=== PATIENT | male | born 1940 | race Caucasian/White ===

== ENCOUNTER 2019-07-04 03:30 | Emergency (ER) | payer OTHER ==
[~2019-07-04] VITALS: Ht 175.3 cm; Wt 70.3 kg
--- NOTE | 2019-07-04 03:33 | ED General ---
General Stated Complaint: CHEST DISCOMFORT History of Present Illness Date Seen by Provider: Jul 04, 2019 Time Seen by Provider: 03:50 Initial Comments Patient is a 79-year-old male with past medical history significant for coronary artery disease and who is status post cardiac intervention 4 days earlier. He was discharged from [facility] in [place], [place] two days earlier after receiving cardiac catheterization with intervention. He had 2 stents placed. This evening, he was at home when he began to have some chest heaviness and palpitations around 5 PM. He had intermittent episodes of these symptoms and right arm pain and palpitations which occurred throughout the evening. Pain radiated to the left side of his neck. He went to bed around 7 PM and continued to have symptoms well into the night which caused him concern so he called EMS. Patient was given aspirin in route to the emergency room. On arrival to the ER, the patient denies active chest pain. He also perceives that he is having palpitations despite that his monitor reveals a sinus rhythm and no arrhythmias. No fever or chills. No cough. No nausea or vomiting. No diaphoresis . Allergies and Home Medications Allergies Coded Allergies: No Known Allergies (Verified Allergy, Unknown, 07/04/19) Patient Home Medication List Home Medication List Reviewed: Yes Review of Systems Review of Systems Constitutional: no symptoms reported EENTM: no symptoms reported Respiratory: no symptoms reported Cardiovascular: chest pain Genitourinary: no symptoms reported Musculoskeletal: no symptoms reported Skin: no symptoms reported All Other Systems Reviewed Negative Unless Noted: Yes Physical Exam Vital Signs Vital Signs - First Documented 07/04/19 03:36 Temp 36.8 Pulse 67 Resp 18 B/P (MAP) 145/63 (90) O2 Delivery Room Air Capillary Refill : Height, Weight, BMI Height: '" Weight: lbs. oz. kg; BMI Method: General Appearance: No Apparent Distress, WD/WN HEENT: PERRL/EOMI, TMs Normal Respiratory: Lungs Clear, Normal Breath Sounds Cardiovascular: Regular Rate, Rhythm, No Edema, No JVD, No Murmur Gastrointestinal: Normal Bowel Sounds Extremity: Normal Capillary Refill, Other (no swelling or pain about the right radial artery where catheterization was performed. expected ecchymosis is present. 2+ pulses) Neurologic/Psychiatric: Alert, Oriented x3, No Motor/Sensory Deficits Skin: Normal Color, Warm/Dry Progress/Results/Core Measures Suspected Sepsis SIRS Temperature: Pulse: Respiratory Rate: Laboratory Tests 07/04/19 03:40: White Blood Count 7.7 Blood Pressure / Mean: Laboratory Tests 07/04/19 03:40: Creatinine 0.97, Platelet Count 167 07/04/19 04:57: Creatinine 0.96, INR Comment 1.0 Results/Orders Lab Results Laboratory Tests Test 07/04/19 03:40 07/04/19 04:57 Range/Units White Blood Count 7.7 4.3-11.0 10^3/uL Red Blood Count 3.34 L 4.35-5.85 10^6/uL Hemoglobin 10.1 L 13.3-17.7 G/DL Hematocrit 32 L 40-54 % Mean Corpuscular Volume 94 80-99 FL Mean Corpuscular Hemoglobin 30 25-34 PG Mean Corpuscular Hemoglobin Concent 32 32-36 G/DL Red Cell Distribution Width 14.0 10.0-14.5 % Platelet Count 167 130-400 10^3/uL Mean Platelet Volume 11.0 H 7.4-10.4 FL Neutrophils (%) (Auto) 69 42-75 % Lymphocytes (%) (Auto) 13 12-44 % Monocytes (%) (Auto) 12 0-12 % Eosinophils (%) (Auto) 6 0-10 % Basophils (%) (Auto) 1 0-10 % Neutrophils # (Auto) 5.2 1.8-7.8 X 10^3 Lymphocytes # (Auto) 1.0 1.0-4.0 X 10^3 Monocytes # (Auto) 0.9 0.0-1.0 X 10^3 Eosinophils # (Auto) 0.4 H 0.0-0.3 10^3/uL Basophils # (Auto) 0.1 0.0-0.1 10^3/uL Sodium Level 140 141 135-145 MMOL/L Potassium Level 6.2 H 4.2 3.6-5.0 MMOL/L Chloride Level 106 105 98-107 MMOL/L Carbon Dioxide Level 22 23 21-32 MMOL/L Anion Gap 12 13 5-14 MMOL/L Blood Urea Nitrogen 20 H 20 H 7-18 MG/DL Creatinine 0.97 0.96 0.60-1.30 MG/DL Estimat Glomerular Filtration Rate > 60 > 60 BUN/Creatinine Ratio 21 21 Glucose Level 109 H 96 70-105 MG/DL Calcium Level 8.1 L 8.5 8.5-10.1 MG/DL Troponin I 4.66 *H <0.30 NG/ML Pro-B-Type Natriuretic Peptide 1725.0 H <75.0 PG/ML Prothrombin Time 13.0 12.2-14.7 SEC INR Comment 1.0 0.8-1.4 Activated Partial Thromboplast Time 26 24-35 SEC My Orders Orders - DAINA NOLEN DO Ed Iv/Invasive Line Start (07/04/19 03:37) Cbc With Automated Diff (07/04/19 03:37) Basic Metabolic Panel (07/04/19 03:37) Probnp Fs (07/04/19 03:37) Troponin I Fs (07/04/19 03:37) Ekg Tracing (07/04/19 03:37) Chest 1 View Ap/Pa Only (07/04/19 03:37) Basic Metabolic Panel (07/04/19 04:40) Protime With Inr (07/04/19 04:54) Partial Thromboplastin Time (07/04/19 04:54) Vital Signs/I&O 07/04/19 07/04/19 03:36 03:49 Temp 36.8 Pulse 67 Resp 18 B/P (MAP) 145/63 (90) O2 Delivery Room Air Room Air Capillary Refill : Progress Note : Progress Note Patient is evaluated immediately on arrival to the ER. He was given aspirin in route. There are no records available for review in our electronic medical record system on this patient. Initial EKG is reassuring. He does have ST depressions in V2 through V4 but no reciprocal changes to suggest posterior infarct. Again, no EKG is available for comparison. Standard ACS work-up is ordered. On arrival to the ER, patient is not having chest pain but does continue to perceive palpitations. 04:50: Troponin is noted to be elevated along with potassium of 6.2. Order is placed to recheck BMP. Lab results do not reveal hyperglycemia, elevated creatinine, anion gap, or any obvious etiology for hyperkalemia. No acute EKG changes suspicious for this lab finding and no treatment is initiated at this time, we will await repeat labs. Regarding the elevated troponin, I spoke to the patient about possible need for admission at least for observation and the patient chooses [facility] as he was just discharged from there and his cardiologists are there. I did speak to Dr. Sandor Johns at the transfer center of [facility]. He confirmed that the patient's troponin had been over 80 at sometime during the last week. Because of this, no heparin is started on the patient as his troponin is trending down. He is not currently having chest pain. Current EKG does not suggest new ischemia. Nonetheless, this patient wouldn't meet admission criteria given his recent intervention and episode of chest pain and HEART score. 06:00: Turnover of care to Dr. Rivera. Transfer to [facility] pending. No current chest pain. ECG Initial ECG Impression Date: Jul 04, 2019 Initial ECG Impression Time: 03:45 Initial ECG Rate: 78 Initial ECG Rhythm: Normal Sinus Initial ECG Comparisson: No Previous ECG Available Departure Impression Primary Impression: Chest pain Disposition: XFER SHT-TRM HOSP Condition: Stable Transfer Transfer Reason: Patient preference Time Spoke to Accepting Phy: 04:50 Transfer Facility: [facility] Method of Transfer: EMS DAINA NOLEN DO Jul 04, 2019 03:33
[2019-07-04 03:50] LABS: BASOPHILS # (AUTO) 0.1 10^3/uL (0.0-0.1); BASOPHILS % (AUTO) 1 % (0-10); EOSINOPHILS # (AUTO) 0.4 10^3/uL (0.0-0.3); EOSINOPHILS % (AUTO) 6 % (0-10); HEMATOCRIT 32 % (40-54); HEMOGLOBIN 10.1 G/DL (13.3-17.7); LYMPHOCYTES % (AUTO) 13 % (12-44); MEAN CORPUSCULAR HEMOGLOBIN 30 PG (25-34); MEAN CORPUSCULAR HGB CONC 32 G/DL (32-36); MEAN CORPUSCULAR VOLUME 94 FL (80-99); MONOCYTES # (AUTO) 0.9 X 10^3 (0.0-1.0); MONOCYTES % (AUTO) 12 % (0-12); NEUTROPHILS # (AUTO) 5.2 X 10^3 (1.8-7.8); NEUTROPHILS % (AUTO) 69 % (42-75); PLATELET COUNT 167 10^3/uL (130-400); WHITE BLOOD COUNT 7.7 10^3/uL (4.3-11.0)
[2019-07-04 04:05] LABS: BUN/CREATININE RATIO 21; CALCIUM 8.1 MG/DL (8.5-10.1); CARBON DIOXIDE 22 MMOL/L (21-32); CHLORIDE 106 MMOL/L (98-107); CREATININE SERUM 0.97 MG/DL (0.60-1.30); GFR ESTIMATED > 60; GLUCOSE 109 MG/DL (70-105); POTASSIUM 6.2 MMOL/L (3.6-5.0); SODIUM 140 MMOL/L (135-145)
[2019-07-04 05:18] LABS: BUN/CREATININE RATIO 21; CALCIUM 8.5 MG/DL (8.5-10.1); CARBON DIOXIDE 23 MMOL/L (21-32); CHLORIDE 105 MMOL/L (98-107); CREATININE SERUM 0.96 MG/DL (0.60-1.30); GFR ESTIMATED > 60; GLUCOSE 96 MG/DL (70-105); POTASSIUM 4.2 MMOL/L (3.6-5.0); SODIUM 141 MMOL/L (135-145)
--- NOTE | 2019-07-04 06:00 | NUR ---
[facility] CALLED FOR TRANSPORT.
--- NOTE | 2019-07-04 06:11 | NUR ---
PT RESTING IN BED. PT INFORMED THAT [facility] HAS BEEN CONTACTED AND THAT IT WILL BE APPROX 1 HOUR BEFORE EMS WILL ARRIVE. PT STATES UNDERSTANDING AND THAT THERE IS NOTHING HE NEEDS AT THIS TIME.
--- NOTE | 2019-07-04 07:01 | Diagnostic Imaging Report ---
INDICATION: Chest pain. TECHNIQUE: Single frontal view of the chest. COMPARISON: None FINDINGS: Lung volumes are normal. There is hazy opacity in the right lung base. No pleural effusion or pneumothorax is seen. The cardiac silhouette is normal in size. There is aortic atherosclerosis. IMPRESSION: 1. Hazy opacity in the right lung base, may represent atelectasis or infiltrate. Dictated by: Dictated on workstation # [id number]
[2019-07-04 07:31] VITALS: BP 170/81
== END 2019-07-04 07:31 | disposition short-term general hospital (02) ==
LOC: ER FS 03:34
DX: R07.89 Other chest pain (principal); Z95.9 Presence of cardiac and vascular implant and graft, unspecified
CPT/HCPCS: 36415; 71045; 80048; 83880; 84484; 85025; 85610; 85730; 93005